=== PATIENT | female | born 1990 | race Caucasian/White ===

== ENCOUNTER → 2020-02-20 12:07 | Outpatient (BNVA) | payer OTHER, SELFPAY | PROVIDERS: Visit Provider Obstetrics & Gynecology | DX: Z76.89 Persons encountering health services in other specified circumstances (principal) ==

== ENCOUNTER 2020-03-06 13:25 | Outpatient (REF) | payer OTHER, SELFPAY ==
[2020-03-07 09:48] LABS: BV Int Neg Control Negative (Negative); BV Int Pos Control Positive (Positive)
[2020-03-07 19:02] LABS: C. trachomatis RNA TMA NOT DETECTED (NOT DETECTED); N. gonorrhoeae RNA TMA NOT DETECTED (NOT DETECTED)
[2020-03-10 07:52] LABS: HPV 16 RNA NOT DETECTED (NOT DETECTED); HPV mRNA E6/E7 rflx Detected (Not Detected)
== END 2020-03-06 13:26 | disposition home or self-care (01) ==
LOC: HO.LAB 13:25
PROVIDERS: Visit Provider Advanced Practice Midwife
DX: Z01.419 Encounter for gynecological examination (general) (routine) without abnormal findings (principal); R10.2 Pelvic and perineal pain; N93.9 Abnormal uterine and vaginal bleeding, unspecified
CPT/HCPCS: 36415; 87480; 87491; 87510; 87591; 87624; 87625; 87660; 88141; 88142

== ENCOUNTER → 2020-05-18 13:56 | Outpatient (BNVA) | payer MEDICAID, SELFPAY | PROVIDERS: Visit Provider Obstetrics & Gynecology ==

== ENCOUNTER → 2020-12-12 16:02 | Outpatient (BNVA) | payer MEDICAID, SELFPAY | PROVIDERS: Visit Provider Advanced Practice Midwife ==

== ENCOUNTER 2022-10-02 19:18 | Outpatient (REF) | payer MEDICAID, SELFPAY ==
[2022-10-03 05:38] LABS: CT PCR NOT DETECTED (Not Detect.); NG PCR NOT DETECTED (Not Detect.)
[2022-10-03 15:45] LABS: BV Int Neg Control Negative (Negative); BV Int Pos Control Positive (Positive)
== END 2022-10-02 19:19 | disposition home or self-care (01) ==
LOC: HO.HHCLNP 19:18
PROVIDERS: Visit Provider Registered Nurse
DX: Z20.2 Contact with and (suspected) exposure to infections with a predominantly sexual mode of transmission (principal)
CPT/HCPCS: 0353U; 87480; 87510; 87660

== ENCOUNTER 2023-12-09 08:00 | Outpatient (REF) | payer MEDICAID, SELFPAY ==
[2023-12-10 09:01] LABS: HPV 16,18/45 See PAP report
[2023-12-21 05:33] LABS: C. trachomatis RNA TMA Not Detected (Not Detected); N. gonorrhoeae RNA TMA Not Detected (Not Detected); Trichomonas (NAAT) Not Detected (Not Detected)
== END 2023-12-09 08:01 | disposition home or self-care (01) ==
LOC: HO.LNP 08:00
PROVIDERS: Visit Provider Advanced Practice Midwife
DX: R87.810 Cervical high risk human papillomavirus (HPV) DNA test positive (principal); Z11.3 Encounter for screening for infections with a predominantly sexual mode of transmission
CPT/HCPCS: 87491; 87591; 87624; 87661; 88175

== ENCOUNTER 2024-04-05 16:45 | Outpatient (REF) | payer MEDICAID, SELFPAY ==
--- OUTSIDE RECORDS SUMMARY | 2024-04-05 19:53 | XMS_ITS | Clinical Summary ---
Author Organization [facility] Address [address] [place] [address] Care Team Providers Care Geological Scout Name Role Phone Unavailable Primary Care Provider Unavailabl e Social History Tobacco Use Types Packs/Day Years Used Date Smoking Tobacco: Never Assessed Comments Unknown Sex and Gender Information Value Date Recorded Sex Assigned at Not on file Legal Sex Female 10:48 PM EST Gender Identity Not on file Sexual Orientation Not on file Plan of Treatment Health Maintenance Due Date Last Done Comments DTaP,Tdap,and Td Vaccines (1 - Tdap) 2009 Hepatitis B Vaccines (1 of 3 - 19+ 3-dose series) 2009 Cervical Cancer Screening: P ap Smear 2011 Depression Screening 01/12/2022 HIV Screening 01/12/2022 Hepatitis C Screening 01/12/2022 Social Influencers of Health Screening 01/12/2022 COVID-19 Vaccine (2023-2 5 season) 2023 Influenza Vaccine (#1) 2023 HIB Vaccines Aged Out No longer eligi ble based on patient's age to complete this topic HPV Vaccines Aged Out No longer eligi ble based on patient's age to complete this topic Hepatitis A Vaccines Aged Out No long er eligible based on patient's age to complete this topic IPV Vaccines Aged Out No longer eligi ble based on patient's age to complete this topic MMR Vaccines Aged Out No longer eligi ble based on patient's age to complete this topic Meningococcal ACWY Vaccine Aged Out N o longer eligible based on patient's age to complete this topic Meningococcal B Vacine Aged Out No lo nger eligible based on patient's age to complete this topic Pneumococcal Vaccine: Pediat rics (0 to 5 Years) and At-Risk Patients (6 to 64 Years) Aged Out No longer eligible b ased on patient's age to complete this topic RSV Immunization Patients Un natalia 20 months Aged Out No longer eligible b ased on patient's age to complete this topic Varicella Vaccines Aged Out No longer eligible based on patient's age to complete this topic
--- OUTSIDE RECORDS SUMMARY | 2024-04-05 19:53 | XMS_ITS | Encounter Summary ---
Author Organization [facility] Address [address] [place] [address] [address] [place] [address] Care Team Providers Care Livestock Farmworker Name Role Phone Irma Maciel [facility] Primary Care Provider [phone] Encounter Details Date Type Department Care Team (Late st Contact Info) Description 01/01/2022 Abstract [facility] [address] [place] [address] Provider, MD Dalila Social History Tobacco Use Types Packs/Day Years Used Date Smoking Tobacco: Never Assessed Comments Unknown Sex and Gender Information Value Date Recorded Sex Assigned at Female 12/09/2021 10:15 AM EDT Legal Sex Female 10:15 AM EDT Gender Identity Female 12/09/2021 10:15 AM EDT Sexual Orientation Choose not to disclose 2021 10:15 AM EDT documented as of this encounter Plan of Treatment Upcoming Encounters Date Type Department Care Team (Late st Contact Info) Description 04/20/2024 9:30 AM EDT Office Visit [facility] [address] [place] [address] Mack-Weems, Chantel, DDS [address] [place] [address] documented as of this encounter Visit Diagnoses Not on filedocumented in this encounter Care Teams Livestock Farmworker Relationship Specialty Start Date End Date Irma Maciel FNP [address] [place] [address] PCP - General Family Medicine 09/27/21 documented as of this encounter
--- OUTSIDE RECORDS SUMMARY | 2024-04-05 19:53 | XMS_ITS | Clinical Summary ---
Author Organization [employer] Address [address] [facility] 7t [place] [address] Care Team Providers Care Valet Manager Name Role Phone Irma Maciel [facility] Primary Care Provider [phone] Allergies No known active allergies Medications buPROPion SR (Wellbutrin SR) 150 MG 12 hr tablet Take 1 tablet by mouth every 12 (twelve) hours. Active hydrOXYzine HCl (Atarax) 25 MG tabletIndicat ions:Anxiety Take 1-2 tablets by oral route as needed up to four times daily for anxiety 90 tablet 1 03/13/19 23 Active Additional Information Patient not taking.Reported on 10/02/2022 Low-Ogestrel 0.3-30 MG-MCG tablet TAKE 1 TABLET BY MOUTH EVERY DAY FOR 84 DAYS 11/05/19 24 Active QUEtiapine (SEROquel) 50 MG tabletIndicat ions:Depressi ve disorder TAKE 1 TABLET BY MOUTH DAILY AT BEDTIME 90 tablet 12/30/19 24 Active nitrofurantoi n, macrocrystal- monohydrate, (Macrobid) 100 MG capsule Take 1 capsule (100 mg) by mouth 2 times daily for 5 days. 10 capsule 04/05/19 25 025 Active nitrofurantoi n, macrocrystal- monohydrate, (Macrobid) 100 MG capsule Take 1 capsule by mouth every 12 (twelve) hours. 03/01/19 22 025 Discontinued(Re order (will not trigger notification to Pharmacy)) Active Problems Problem Noted Date Diagnosed Date Request for sterilization 11/11/2022 complicated by tobacco use 11/11/2022 Abnormal Pap smear of cervix 07/16/2022 Overview (07/16/2022): History of recurrent BV - positive 03/2022, 09/2021, 07/2021. Gonorrhea, chlamydia, trichomonas negative 03/2022. Positive chlamydia 09/2021, positive trichomonas 02/2021. [facility] records reviewed: Pap NIL/HPV pos, neg 16/18/45 subtypes 02/2020. LARRY 3 in 2011. NIL/HPV pos 2014. NIL/neg 2015, 2018. Due for cotesting as of 02/2021 Referred for colposcopy 06/2022 Bacterial vaginosis 07/16/2022 Overview (10/08/2022): ?? Recurrent Assessment & Plan (10/08/2022 9:39 PM EDT): ?? History of recurrent BV - positive July 2021, September 2021, Mar 2022, suggestive on pap June 2022 ?? Initiated tx for recurrent BV in June 2022, but did not completed full course of tx ?? Re-test vaginitis/vaginosis panel and testing for STI ?? Plan pending results, may consider repeat of tx for recurrent BV with emphasis on completion of entire course ?? Follow up/ED precautions reviewed Depressive disorder 03/13/2022 Overview (07/16/2022): - Well managed with seroquel - Established with therapist Resolved Problems Problem Noted Date Diagnosed Date Resolved Date Increased frequency of urination 01/09/2022 03/13/2022 Encounters Date Type Department Care Team Description 04/05/2024 1:00 PM EST Office Visit [facility] [address] [place] [address] Name, MD Ceasar Dysuria (Primary Dx); UTI symptoms; Suprapubic pressure 03/31/2024 Telephone [facility] [address] [place] [address] HoustonIrma FNP Nurse Triage from Last 3 Months Immunizations Name Administration Dates Next Due Influenza injectable quadrivalent preservative f ree 11/21/2015 MMR 02/27/2019,12/10/2015 Moderna Covid-19 Vaccine 12+ 10/02/2020,06/24/19 21 Pneumococcal Polysaccharide PPSV23 08/13/2012 Tdap 11/21/2015 Family History Medical History Relation Name Comments Hypertension Father Hypertension Mother Relation Name Status Comments Father Mother Social History Tobacco Use Types Packs/Day Years Used Date Smoking Tobacco: Former Cigarettes Q uit: 06/17/2022 Smokeless Tobacco: Never Tobacco Cessation:Counseling Given: Not Answered Comments:Quit smoking cigarettes about 2 weeks ago Alcohol Use Standard Drinks/Week Comments Never 0 (1 standard drink = 0.6 oz pur e alcohol) Comments No Sex and Gender Information Value Date Recorded Sex Assigned at Female 12/09/2021 10:15 AM EDT Legal Sex Female 10:15 AM EDT Gender Identity Female 12/09/2021 10:15 AM EDT Sexual Orientation Choose not to disclose 2021 10:15 AM EDT Last Filed Vital Signs Vital Sign Reading Time Taken Comments Blood Pressure 112/81 04/05/2024 1:09 PM EST Pulse 91 04/05/2024 1:09 PM EST Temperature 36.6 ??C (97.9 ??F) 04/05/2024 1:09 PM ES T Respiratory Rate 16 04/05/2024 1:09 PM EST Oxygen Saturation 99% 04/05/2024 1:09 PM EST Inhaled Oxygen Concentration - - Weight 55.3 kg (122 lb) 04/05/2024 1:09 PM EST Height 160 cm (5' 3 ) 12/09/2023 9:13 AM EDT Body Mass Index 21.61 12/09/2023 9:13 AM EDT Plan of Treatment Upcoming Encounters Date Type Department Care Team (Late st Contact Info) Description 04/20/2024 9:30 AM EDT Office Visit [facility] ADULT [facility]ENT[facility] [address] [place] [address] Chantel Mosley, JAMIES [address] [place] [address] Health Maintenance Due Date Last Done Comments Depression Screening 1990 SDOH Screening 1990 Alcohol/Substance Use Screening 2002 Hepatitis B Vaccines (1 of 3 - 19+ 3-dose series) 2009 HPV/Cotest 06/13/2023 06/12/2022, 06/12/2022 COVID-19 Vaccine (3 - 2023-2 5 season) 2023 10/02/2020, 06/23/2020 Influenza Vaccine (#1) 2023 11/21/2015 Colposcopy 12/10/2023 Cervical Cancer Screening 12/08/2024 Family Planning (PISQ) 12/08/2024 12/09/2023 Pap Smear 12/08/2024 12/09/2023, 06/12/2022, 03/06/2020 Tobacco Screening 12/08/2024 12/09/2023 DTaP/Tdap/Td Vaccines (2 - T d or Tdap) 11/20/2025 11/21/2015 Zoster Vaccines (1 of 2) 02/12/2040 RSV Patients and Patients Aged 60 years or older (1 - 1-dose 75+ series) 2065 Pneumococcal Vaccine: Pediatrics (0 to 5 Years) and At-Risk Patients (6 to 49) Years) Aged Out 08/13/2012 No longer eligible b ased on patient's age to complete this topic HIV Screening Completed 09/24/2020, 09/24/2020 Hepatitis C Screening Completed 09/24/2020 HIB Vaccines Aged Out No longer eligi [...] patient's age to complete this topic Meningococcal Vaccine Aged Out No catarina yvette eligible based on patient's age to complete this topic RSV under 20 months Aged Out No longe r eligible based on patient's age to complete this topic Rotavirus Vaccines Aged Out No longer eligible based on patient's age to complete this topic Procedures Procedure Name Priority Date/Time Associated Diagnosis Comments POCT URINALYSIS DIPSTICK Routine 04/05/2024 1:25 PM EST UTI symptoms POCT , URINE Routine 04/05/2024 1:22 PM EST UTI symptoms PAP SMEAR Routine 12/09/2023 9:32 AM EDT Cervical high risk human papillomavirus (HPV) DNA test positive HPV GENOTYPES 16,18/45 Routine 06/12/2022 1:53 PM EDT ZZZ HISTORICAL HEPATITIS C AB W/REFL TO HCV RNA, QN, PCR Routine 09/24/2020 3:09 PM EDT HIV 1/2 ANTIGEN/ANTIBODY, FOURTH GENERATION W/RFL Routine 09/24/2020 3:09 PM EDT from Last 3 Months or Most Recently Relevant to Health Maintenance Results * (ABNORMAL) POCT urinalysis dipstick manually resulted (04/05/2024 1:25 PM EST) Color, UA Yellow Clarity, UA Clear Glucose, UA Negative Bilirubin, UA Negative Ketones, UA Negative Spec Grav, UA 1.020 Blood, UA Positive(A) Negative, None Detected pH, UA 6.5 Protein, UA Trace Urobilinogen, UA 0.2 Leukocytes, UA Trace Negative, Rare, Trace Nitrite, UA Negative Negative, None Detected Appearance, UA OK Urine 04/05/2024 1:25 PM EST us Ceasar Cerna MD POINT OF CARE TEST ENTER/EDIT OR DERABLES Final Result * POCT , urine manually resulted (04/05/2024 1:22 PM EST) Preg Test, Ur Negative Negative, Indeterminate, None Detected, Invalid, Specimen unsatisfactory for evaluation, Weakly Positive Urine 04/05/2024 1:22 PM EST us Ceasar Cerna MD POINT OF CARE TEST ENTER/EDIT OR DERABLES Edited Result - Final * Pap Smear (12/09/2023 9:32 AM EDT) Swab Cervical swab / Unknown 12/09/2023 9:32 AM EDT 12/10/2023 8:57 AM EDT Narrative [facility] - 12/22/2023 12:42 PM EST ----- ------- Name: Kiki Pickens ? Age/Sex: 33/F ? : 1990 Unit#: [id number] ?? Attend Dr: ZENY VEE CNM ?Re12/09/23 ?Status: DEP REF ? Location: HO.LNP ?Disch: ? ----- ------- SPEC : [id number] ?RECD: 12/10/23 ? STATUS: ??SOUT ? REQ NUM: [id number] ? ROSHAN: 12/09/23 ? SUBM DR: ZENY VEE CNM ? ENTERED: ??12/10/23 ?SP TYPE: Pap Smr ?OTHR : ? ORDERED: ??Pap Smear ?Addendum Addendum ??1 ?Entered: 12/22/23-1241 HPV High Risk: ??Positive HPV Genotyping 16: ??Negative HPV Genotyping 18: ??Negative Addendum Signed (signature on file) Jordan Bullard MD 12/22/231241 ? ----- ------- ? Interpretation ?? Satisfactory for evaluation. ?? Negative for intraepithelial lesion or malignancy. ?Clinical Information LMP: Unknown date Previous PAP test: Unknown date, abnormal Other history: History of LARRY 3 ? Material Received ?? ThinPrep-Vaginal/Cervical ----- ------- Signed (signature on file) EDIL Washburn (ASCP) 12/11/23 1403 ? (signature on file) Jordan Bullard MD 12/22/23 1242 ? ----- ------- ? END OF REPORT ? Zeny Vee [facility] CYTOLOGY ORDERABLES F inal Result Performing Organization Address [facility] Co de Phone Number [facility] [address] [place] [address] [phone] * HPV Genotypes 16,18/45 (06/12/2022 1:53 PM EDT) Pathologist [facility] HPV 16 RNA NOT DETECTED NOT DETECTED [facility] [place] [facility] HPV 18/45 RNA NOT DETECTED NOT DETECTED [facility] [place] [employer] Comment: Methodology: Burr Picker Mediated Amplification Cervical sources are required for HPV testing. If a vaginal source from a patient who has had a total hysterectomy with removal of cervix was submitted, please contact the testing laboratory for alternative testing options. 06/12/2022 1:53 PM EDT 06/13/2022 2:03 AM EDT Zeny Vee [facility] BLOOD ORDERABLES Naomi l Result Performing Organization Address [facility] Co de Phone Number [facility] [address], [place] [address] [facility] [address] [place] [address] * HEPATITIS C AB W/REFL TO HCV RNA, QN, PCR (09/24/2020 3:09 PM EDT) HEPATITIS C ANTIBODY NON-REACT LEYDA NON-REACT LEYDA [facility] INDEX 0.01 <1.00 [facility] Comment: ?? HCV antibody was non-reactive. There is no laboratory ?? evidence of HCV infection. ?? In most cases, no further action is required. However, if recent HCV exposure is suspected, a test for HCV RNA (test code 33841) is suggested. ?? For additional information please refer to http://Mapori.Radario/faq/HEQ90d6 (This link is being provided for informational/ educational purposes only.) ?? 09/24/2020 3:09 PM EDT Hilda Mercado [facility] HISTORICAL/NON ORDERABLE LABS Final Result [facility] [address] * HIV 1/2 ANTIGEN/ANTIBODY,FOURTH GENERATION W/RFL (09/24/2020 3:09 PM EDT) HIV-1/2 ANTIGEN AND ANTIBODIES, 4TH GENERATION W/ REFLEX NON-REACT LEYDA NON-REACT LEYDA [facility] Comment: HIV-1 antigen and HIV-1/HIV-2 antibodies were not detected. There is no laboratory evidence of HIV infection. ?? PLEASE NOTE: This information has been disclosed to you from records whose confidentiality may be protected by state law. ??If your state requires such protection, then the state law prohibits you from making any further disclosure of the information without the specific written consent of the person to whom it pertains, or as otherwise permitted by law. A general authorization for the release of medical or other information is NOT sufficient for this purpose. ? For additional information please refer to http://Mapori.Radario/faq/PNG179 (This link is being provided for informational/ educational purposes only.) ? The performance of this assay has not been clinically validated in patients less than 2 years old. ?? 09/24/2020 3:09 PM EDT us Hilda Mercado ACADEMIC SUPPORT DIRECTOR LAB BLOOD ORDERABLES Final Res [facility] [address] [place] [address], from Last 3 Months or Most Recently Relevant to Health Maintenance Insurance [facility] C3 DENTAL-[facility] MEDICAID STAND ADULT Care Teams Valet Manager Relationship Specialty Start Date End Date Irma Maciel FNP [address] [place] [phone] PCP - General Family Medicine 09/27/21
--- OUTSIDE RECORDS SUMMARY | 2024-04-05 19:53 | XMS_ITS | Encounter Summary ---
Author Organization [employer] Address [address] [facility] 7[address] [place] [address] Care Team Providers Care Mysql Database Developer Name Role Phone [facility] Primary Care Provider [phone] Reason for Visit * Reason Onset Date Comments Nurse Triage 03/31/2024 Encounter Details Date Type Department Care Team ([facility] st Contact Info) Description 03/31/2024 Telephone [facility] [address] [place], [place] [phone] [facility] [address] [place], [place] [phone] Nurse Triage Social History Tobacco Use Types Packs/Day Years Used Date Smoking Tobacco: Former Cigarettes Q uit: 06/17/2022 Smokeless Tobacco: Never Comments:Quit smoking cigare ttes about 2 weeks ago Alcohol Use Standard [...] AM EDT documented as of this encounter Miscellaneous Notes * Telephone Encounter - Karmen Dooley RN - 03/31/2024 10:16 AM EST called pt to triage, spoke to pt. pt states since December, having stomach pain especially after eating anything. pt denies consistent vomiting, fevers, diarrhea, current severe pain, or other associated symptoms. advised home care: rest, fluids, light diet, avoid fatty foods, and call back or seekER evaluation if severe. advised no available appt to schedule at this time, and advised walk in center if needed and given location, hours and wait times cautions. pt understands and agrees with plan. insurance verified. Protocol Used: Abdominal Pain - Upper (Adult) Protocol-Based Disposition: See in Office or Video Visit Today Video visit offer not recorded Positive Triage Question: * Patient wants to be seen * All higher-acuity triage questions were negative Care Advice Discussed: * Reassurance and Education - Stomach Pain * Antacid Medicine * Drink Clear Fluids * Diet * Avoid Aspirin and NSAIDs * Stop Smoking * Reasons To Call Back - Severe pain present over 1 hour - Constant pain present over 2 hours - Moderate pains come and go for more than 24 hours - Mild pains come and go for more than 72 hours - You become worse * Telephone Encounter - Zeke Villavicencio - 03/31/2024 9:20 AM EST Symptom: Abdominal Pain - Female - Not Outcome: Schedule an urgent appointment (within 4 hours) or talk to a nurse or provider soon Reason: Getting worse The caller accepted this outcome. documented in this encounter Plan of Treatment Upcoming Encounters Date Type Department Care Team (Late st Contact Info) Description 04/20/2024 9:30 AM EDT Office Visit [facility] [address] [place] [address] Mack-Weems, Chantel, DDS [address] [place] [address] documented as of this encounter Visit Diagnoses Not on filedocumented in this encounter Care Teams Mysql Database Developer Relationship Specialty Start Date End Date Irma Maciel FNP [address] [place] [address] PCP - General Family Medicine 09/27/21 documented as of this encounter
--- OUTSIDE RECORDS SUMMARY | 2024-04-05 19:53 | XMS_ITS | Encounter Summary ---
Author Organization [employer] Address [address] [facility] [address] [place] [address] Care Team Providers Care Chartered Accountant Name Role Phone [facility] Primary Care Provider [phone] Reason for Visit * Reason Onset Date Comments Nurse Triage 09/30/2022 Encounter Details Date Type Department Care Team ([facility] st Contact Info) Description 09/30/2022 Telephone [facility] [address] [place], [place] [phone] [facility] [address] [place], [place] [phone] Nurse Triage Social History Tobacco Use Types [...] encounter Miscellaneous Notes * Telephone Encounter - Nina Lewis RN - 09/30/2022 12:20 PM EDT Triage call Pt reports missed apt today for follow up for BV. Pt has symptoms of itchiness and still slight bad odor. Pt reports wasn't sure if used medication correctly when last seen in June. Officevisit with SCARLET Banda , prescribed metrogel x5 nights and then 2x/week for twelve weeks. Pt doesn't believe Pt actually finished as prescribed. Rescheduled this follow up visit with JELANI Lau 10/02/22 @ 230pm. Insurance is verified as active prior to booking. Protocol Used: Vaginal Symptoms (Adult) Protocol-Based Disposition: See in Office or Video Visit within 3 Days Positive Triage Questions: * Vaginal itching and not improved > 3 days following CARE ADVICE * Vaginal odor (bad smell) not improved > 3 days following CARE ADVICE * Patient wants to be seen * All higher-acuity triage questions were negative Care Advice Discussed: * Reasons To Call Back - Discharge becomes yellow or green - Discharge smells bad - Fever or abdomen pain occur - You become worse. * Telephone Encounter - Georgina Vick - 09/30/2022 12:03 PM EDT Symptom: Vaginal Symptoms - Not Bleeding Outcome: Schedule an urgent appointment (within 4 hours) or talk to a nurse or provider soon Reason: Foul-smelling vaginal discharge and itchiness The caller accepted this outcome documented in this encounter Plan of Treatment Upcoming Encounters Date Type Department Care Team (Late st Contact Info) Description 04/20/2024 9:30 AM EDT Office Visit [facility] [address] [place] [address] Mack-Chantel Weems, DDS [address] [place] [address] documented as of this encounter Visit Diagnoses Not on filedocumented in this encounter Care Teams Chartered Accountant Relationship Specialty Start Date End Date Irma Maciel FNP [address] [place] [address] PCP - General Family Medicine 09/27/21 documented as of this encounter
--- OUTSIDE RECORDS SUMMARY | 2024-04-05 19:53 | XMS_ITS | Encounter Summary ---
Author Organization [facility] Address [address] [place] [address] Care Team Providers Care Jewel Bearing Turner Name Role Phone Irma Maciel [employer]URAL STEEL ENGINEER Primary Care Provider [phone] Reason for Visit * Reason Comments UTI Encounter Details Date Type Department Care Team ([facility] Contact Info) Description 04/05/2024 1:00 PM EST Office Visit [facility] [address] [place] [address] [phone] Name, MD Ceasar [address] [place] [address] Dysuria (Primary Dx); UTI symptoms; Suprapubic pressure Social History Tobacco Use Types Packs/Day Years [...] AM EDT documented as of this encounter Last Filed Vital Signs Vital Sign Reading Time Taken Comments Blood Pressure 112/81 04/05/2024 1:09 PM EST Pulse 91 04/05/2024 1:09 PM EST Temperature 36.6 ??C (97.9 ??F) 04/05/2024 1:09 PM ES T Respiratory Rate 16 04/05/2024 1:09 PM EST Oxygen Saturation 99% 04/05/2024 1:09 PM EST Inhaled Oxygen Concentration - - Weight 55.3 kg (122 lb) 04/05/2024 1:09 PM EST Height - - Body Mass Index 21.61 12/09/2023 9:13 AM EDT documented in this encounter Progress Notes * Ceasar Cerna MD - 04/05/2024 1:00 PM EST Subjective Patient ID: Kiki Palomares is a 34 y.o. female who presents for UTI. Patient comes complaining of dysuria, urinary frequency, suprapubic discomfort since the weekend. She denies any vaginal discharge. She is sexually active and does not use condoms. She denies any fevers, no chills, no CV angle discomfort. She believes she might have seen some hematuria the last time she urinated. Review of Systems Constitutional: Negative for chills and fever. HENT: Negative for sore throat. Respiratory: Negative for cough, shortness of breath and wheezing. Cardiovascular: Negative for chest pain, palpitations and leg swelling. Gastrointestinal: Negative for abdominal pain. Genitourinary: See HPI Visit Vitals BP 112/81 (BP Location: Left arm, Patient Position: Sitting, BP Cuff Size: Adult) Pulse 91 Temp 97.9 ??F (36.6 ??C) (Temporal) Resp 16 Wt 122 lb (55.3 kg) SpO2 99% BMI 21.61 kg/m?? OB Status Having periods Smoking Status Former BSA 1.57 m?? Objective Physical Exam Constitutional: General: She is not in acute distress. Appearance: She is not toxic-appearing. Cardiovascular: Rate and Rhythm: Normal rate and regular rhythm. Pulmonary: Effort: Pulmonary effort is normal. No respiratory distress. Abdominal: Tenderness: There is no right CVA tenderness or left CVA tenderness. Comments: Mild discomfort on the palpation of the suprapubic area Urine test was negative Urine dipstick showed trace leukocytes and blood Assessment/Plan Diagnoses and all orders for this visit: UTI symptoms Comments: I recommend treatment for possible UTI with Macrobid. Drink plenty of fluids. She will collect vaginal samples to check for GC, chlamydia, trichomonas, BV, Carlyn. Further recommendation based on the results and response to the medication. Orders: - POCT urinalysis dipstick manually resulted - POCT , urine manually resulted Dysuria Suprapubic pressure Other orders - nitrofurantoin, macrocrystal-monohydrate, (Macrobid) 100 MG capsule; Take 1 capsule (100 mg) by mouth 2 times daily for 5 days. documented in this encounter Plan of Treatment Upcoming Encounters Date Type Department Care Team (Late st Contact Info) Description 04/20/2024 9:30 AM EDT Office Visit [facility] [address] [place] [address] Mack-Weems, Chantel, DDS [address], [place] [phone] Scheduled Orders Name Type Priority Associated Diagnoses Orde r Schedule Bacterial Vaginosis Microbiology Routine Dysuria Ordered: 04/05/2024 Chlamydia/N. Gonorrhoeae RNA, TMA, Urogenitial Microbiology Routine Dysuria Ordered: 04/05/2024 documented as of this encounter Procedures Procedure Name Priority Date/Time Associated Diagnosis Comments POCT URINALYSIS DIPSTICK Routine 04/05/2024 1:25 PM EST UTI symptoms POCT , URINE Routine 04/05/2024 1:22 PM EST UTI symptoms documented in this encounter Results * (ABNORMAL) POCT urinalysis dipstick manually [...] UA OK Urine 04/05/2024 1:25 PM EST Ceasar Cerna MD POINT OF CARE TEST ENTER/EDIT OR DERABLES Final Result * POCT , urine manually resulted (04/05/2024 1:22 PM EST) Preg Test, Ur Negative Negative, Indeterminate, None Detected, Invalid, Specimen unsatisfactory for evaluation, Weakly Positive Urine 04/05/2024 1:22 PM EST us Ceasar Name POINT OF CARE TEST ENTER/EDIT OR DERABLES Edited Result - Final documented in this encounter Visit Diagnoses Diagnosis Dysuria- Primary UTI symptoms Suprapubic pressure documented in this encounter Care Teams Jewel Bearing Turner Relationship Specialty Start Date End Date Irma Maciel FNP [address] [place] [phone] PCP - General Family Medicine 09/27/21 documented as of this encounter
--- OUTSIDE RECORDS SUMMARY | 2024-04-05 19:53 | XMS_ITS | Encounter Summary ---
Author Organization [facility] Address [address] [facility] [facility] [address] [place] [address] Care Team Providers Care Systems Integration Manager Name Role Phone Irma Maciel [facility] Primary Care Provider [phone] Encounter Details Date Type Department Care Team (Late st Contact Info) Description 10/06/2022 Orders Only [facility] [address] [place] [address] Nhung Gardiner MD [address] [place] [address] Social History Tobacco Use Types Packs/Day Years [...] Description 04/20/2024 9:30 AM EDT Office Visit [facility] [address] [place] [address] Mack-WeemsChantel yanes, DDS [address] [place] [address] documented as of this encounter Visit Diagnoses Not on filedocumented in this encounter Care Teams Systems Integration Manager Relationship Specialty Start Date End Date Irma MacielKAROLINA [address] [place] [address] PCP - General Family Medicine 09/27/21 documented as of this encounter
[2024-04-06 11:46] LABS: CT PCR NOT DETECTED (Not Detect.); NG PCR NOT DETECTED (Not Detect.)
[2024-04-06 14:02] LABS: Bacterial Vaginosis PCR NEGATIVE (Negative); Candida Group PCR DETECTED (Not Detect); Candida glab krusei PCR NOT DETECTED (Not Detect); Trichomonas vaginalis PCR NOT DETECTED (Not Detect)
== END 2024-04-05 16:46 | disposition home or self-care (01) ==
LOC: HO.HHCLNP 16:45
PROVIDERS: Visit Provider Internal Medicine Geriatric Medicine
DX: R30.0 Dysuria (principal)
CPT/HCPCS: 81515; 87491; 87591